=== PATIENT | female | born 1945 | race Caucasian/White ===

== ENCOUNTER → 2017-05-02 | Outpatient (CLI) | payer MEDICARE, BC, OTHER ==
--- NOTE | 2017-05-02 10:38 | RAD ---
CT chest without contrast Indication: Cough for 3 months. Technique: CT chest without IV contrast with multi planar reformats. Comparison: None Findings: Clearing neck base. Heart is normal in size. No pericardial or pleural effusion. Aortic arch calcifications noted. No pathologically enlarged axillary, mediastinal or hilar adenopathy. Calcified right hilar lymph nodes noted. Small sliding hiatal hernia. Parenchymal Scarring is noted with punctate calcifications in the superior segment of the right lower lobe. Minimal subsegmental atelectasis or scarring noted in the lingula. Punctate calcified granuloma in the lingula. There is no honeycombing, Mukesh opacities or focal consolidations. No pulmonary nodules. Visualized noncontrast sections through the liver, spleen, gallbladder, pancreas and adrenals are within normal limits. 2.0 cm simple appearing cyst seen in the partially visualized left kidney. Status post right shoulder arthroplasty. No suspicious bony lesion. Impression: 1. No evidence of interstitial lung disease. No pneumonia. 2. Mild parenchymal scarring noted in the superior segment of the right lower lobe with dystrophic calcification/calcified granuloma. 3. Small sliding hilar hernia. PQRS Compliance Statement: One or more of the following individualized dose reduction techniques were utilized for this examination: 1. Automated exposure control 2. Adjustment of the mA and/or kV according to patient size 3. Use of iterative reconstruction technique Cough
== END | disposition home or self-care (01) ==
LOC: CT 09:18
PROVIDERS: ATTEND Internal Medicine Pulmonary Disease
DX: J98.4 Other disorders of lung (principal); K44.9 Diaphragmatic hernia without obstruction or gangrene; I70.0 Atherosclerosis of aorta
CPT/HCPCS: 71250

== ENCOUNTER → 2021-05-07 | Outpatient (CLI) | payer MEDICARE, BC, OTHER ==
--- NOTE | 2021-05-07 16:53 | RAD ---
BILATERAL SCREENING MAMMOGRAM History: Routine screening. Comparison: Most recently on 03/27/2015. Technique: Routine 2D and 3D tomosynthesis digital mammogram views were obtained bilaterally. Interpr etation was assisted with the use of computer-aided detection. Findings: Breast Tissue Density B : There are scattered areas of fibroglandular density. There are no dominant masses, suspicious microcalcifications, or architectural distortion. IMPRESSION: No mammographic evidence of malignancy. Recommend routine screening mammography in one year. BI-RADS category 1: Negative. Patient information is entered into the reminder system with a target due date for the next screening mammogram. "Our facility is accredited by the [employer] Mammography Program." Electronically signed by: MAURICIO VAZQUEZ MD (05/07/2021 4:50 PM) [id number]
== END ==
LOC: MAMMO 13:51
PROVIDERS: ATTEND Family Medicine
DX: Z12.31 Encounter for screening mammogram for malignant neoplasm of breast (principal)
CPT/HCPCS: 77063; 77067

== ENCOUNTER → 2021-07-27 | Outpatient (CLI) | payer MEDICARE, BC, OTHER ==
[~2021-07-27] MED LIST: IOHEXOL 350 MG/ML 100 ML VIAL. IV ONE; IOHEXOL 350 MG/ML 100 ML VIAL. ONE
--- NOTE | 2021-07-27 10:35 | RAD ---
CTA CHEST History: Shortness of breath Technique: CT of the chest was performed with intravenous contrast. PE protocol. Maximum intensity pr ojection coronal and sagittal reconstructions were performed. Exposure: One or more of the following individualized dose reduction techniques were utilized for thi s examination: 1. Automated exposure control 2. Adjustment of the mA and/or kV according to patient size 3. Use of iterative reconstruction technique. Comparison: May 02, 2017 Findings: Chest: No pulmonary embolism. No aortic aneurysm or dissection. Mild atheromatous plaque within the a edmund. Mild coronary artery calcifications. Moderate hiatal hernia. No pathologic lymphadenopathy. No consolidation or pleural effusion. No pneumothorax. Postoperative changes right lower lobe Scattered linear atelectasis. 2 mm right lower lobe pulmonary nodule (series 4 image 121). 3 mm and 2 mm right lower lobe fissure-based nodules (image 89 and 88). Upper abdomen: The imaged upper abdomen is unremarkable. Bones: No pathologic osseous lesions. Impression: 1. No acute thoracic pathology. No pulmonary embolism. 2. Small pulmonary nodules. Recommend one-year follow-up chest CT without contrast if high risk. Electronically signed by: Edwar Blandon DO (07/27/2021 10:32 AM) [facility]
== END ==
LOC: CT 09:18
PROVIDERS: ATTEND Family Medicine
DX: R91.8 Other nonspecific abnormal finding of lung field (principal); K44.9 Diaphragmatic hernia without obstruction or gangrene; J98.11 Atelectasis; I70.0 Atherosclerosis of aorta; I25.10 Atherosclerotic heart disease of native coronary artery without angina pectoris; R79.1 Abnormal coagulation profile; R06.02 Shortness of breath
CPT/HCPCS: 71275; Q9967